=== PATIENT | male | born 1985 | race Caucasian/White ===

== ENCOUNTER 2017-02-02 14:00 | Outpatient (CLI) | END 2017-02-02 14:01 | disposition home or self-care (01) | LOC: AMBL 14:00 | PROVIDERS: ATTEND Emergency Medicine | DX: R56.9 Unspecified convulsions (principal); R41.82 Altered mental status, unspecified; R40.4 Transient alteration of awareness ==

== ENCOUNTER 2018-01-06 09:53 | Outpatient (CLI) | END 2018-01-06 10:51 | disposition short-term general hospital (02) | LOC: AMBL 09:53 | PROVIDERS: ATTEND Internal Medicine | DX: R53.1 Weakness (principal); R26.2 Difficulty in walking, not elsewhere classified; R00.0 Tachycardia, unspecified; R58 Hemorrhage, not elsewhere classified; F43.12 Post-traumatic stress disorder, chronic; W19.XXXA Unspecified fall, initial encounter ==